=== PATIENT | male | born 1995 | race Caucasian/White ===

== ENCOUNTER 2018-08-15 03:12 | Emergency (ER) | payer SELFPAY ==
[2018-08-15] VITALS (7 sets, daily range): BP systolic 114–141; BP diastolic 66–80; PULSE 7–80; RESP 16–22; TEMP 37.8; O2SAT 97–98; BMI 24.3
--- NOTE | 2018-08-15 03:23 | RAD_ITS ---
STUDY: X-RAY - RIGHT SHOULDER REASON FOR EXAM: Male, 22 years old. Deformity right shoulder, patient wrestling TECHNIQUE: 3 view(s) of the shoulder. COMPARISON: None. FINDINGS: Normal acromioclavicular joint. Normal acromion. Anterior inferior dislocation of the humeral head in relationship to the glenoid with an acute displaced avulsion fracture of the greater tuberosity The soft tissue structures are unremarkable. Normal visualized pulmonary apex. RAD/Shoulder min 2 Views IMPRESSION: Acute inferior anterior dislocation of the shoulder joint with an acute displaced avulsion fracture of the greater tuberosity of the humeral head. Electronically Signed: Yessica Kelley MD at 3:55 EST , Service support ,
[2018-08-15] MEDS: Ondansetron 4 MG/2 ML Vial IV (03:25)
--- NOTE | 2018-08-15 03:25 | ED.RN ---
THIS NURSE CONTACTED PT FATHER PER PT REQUEST
[2018-08-15] MEDS: Morphine 4 MG/ML Syringe IV (03:31)
[2018-08-15] MEDS: Propofol 200 MG/20 ML Vial 100 MG IV BOLUS (04:16)
--- NOTE | 2018-08-15 04:23 | RAD_ITS ---
HISTORY: POST REDUCTION COMPARISON: Right shoulder 0342 hours FINDINGS: XR right shoulder 2 views 0440 hours Recent exam demonstrated anterior dislocation of the right humeral head. 2 views obtained following successful closed reduction of the right glenohumeral joint. The glenohumeral relationship is now normal. Redemonstration of a displaced fracture of the greater tuberosity of the right humeral head. The fracture fragment measures approximately 3.5 cm in length. No new fracture. The glenoid appears intact. Right AC joint is not widened. RAD/Shoulder min 2 Views IMPRESSION: 1. Successful closed reduction of the right glenohumeral joint. 2. Redemonstration of a displaced fracture of the greater tuberosity, right humeral head. No new fracture post reduction. at [id number] Reported and signed by: Casey Bradford MD Electronically Signed: Casey Bradford, at 4:56 EST Tel , Service support ,
--- NOTE | 2018-08-15 05:13 | ED.DCSUM_ITS ---
- ER Visit Summary Date of Service: 08/15/18 Chief Complaint: Shoulder injury History of Present Illness: The patient is a 22 M presenting for evaluation secondary to a shoulder injury. Patient with ports that he was wrestling with somebody and suffered a fall on his outstretched arm. He reports that he had immediate onset of severe shoulder pain and a numbness type feeling going down into his fingers. He denies any other injuries. Physical Examination: Physical exam unremarkable except for examination of the patient's right upper extremity. There is obvious deformity noted at the patient's shoulder with a palpable glenoid fossa and displaced humeral head. Patient has an abrasion over his elbow. Patient has normal pulses, normal range of motion of the fingers wrist and elbow. He reports decreased sensation over the forearm but is able to feel light touch. Test Results: Right shoulder x-ray demonstrates fracture dislocation. Repeat x- ray demonstrates successful reduction, but continued greater tuberosity displaced fracture Emergency Department Course and Treatment: Patient presented secondary to a shoulder injury. I initially tried to manipulate the patient to reduce this on arrival, but the patient was unable to tolerate secondary to pain. IV was established patient was given morphine and Zofran. X-rays showed fracture dislocation. I consented the patient for both interscalene nerve block as well as procedural sedation should be necessary. Patient was prepped and placed in a left lateral decubitus position, the patient's interscalene portion of his brachial plexus was identified under ultrasound. A 19-gauge spinal needle was advanced under direct visualization, but during the procedure I was unable to obtain adequate view of the patient's brachial plexus and the needle tip, so the procedure was aborted. Patient was then sedated with a total of 100 mg of propofol on full cardiovascular monitoring and supplemental oxygen. He did not have any desaturation episodes. Traction countertraction and some scapular manipulation were utilized, and the patient's shoulder was reduced successfully. He was placed in a sling and swath. Due to the fact that he has the greater tuberosity fracture, patient will require orthopedics for follow-up. Patient was discharged with a course of Percocet. Patient had improvement of his numbness in his forearm and hands prior to discharge. Disposition: Discharge Impression: 1. Right shoulder dislocation 2. Displaced greater tuberosity fracture 3. Procedural sedation 4. Closed reduction of the right shoulder by ED physician This note was generated with Dragon dictation software. It may contain incorrect words, spelling, and punctuation that were not noted in review of the chart prio r to signing ED Disposition - Plan for ED Patient: Disposition: Home or Assisted Living Chief Complaint: Upper Extremity Injury Diagnosis: Fracture dislocation of right shoulder joint Instructions: ED Dislocation Shoulder Redu, ED Fx Shoulder Prescriptions: Oxycodone HCl/Acetaminophen [Percocet 5/325] 1 tab PO Q6H PRN PRN 5 Days #20 tab PRN Reason: Pain Referrals: Rizwan Mayers DO [STAFF PHYSICIAN] - As soon as possible
[2018-08-15] MEDS: oxyCODONE 5 MG Tablet PO (05:30)
== END 2018-08-15 05:46 | disposition home or self-care (01) ==
PROVIDERS: Emergency Provider Emergency Medicine
DX: S42.251A Displaced fracture of greater tuberosity of right humerus, initial encounter for closed fracture (principal); S43.004A Unspecified dislocation of right shoulder joint, initial encounter; S50.311A Abrasion of right elbow, initial encounter; W19.XXXA Unspecified fall, initial encounter; Y93.72 Activity, wrestling; Y92.9 Unspecified place or not applicable
CPT/HCPCS: 23665; 73030; 96374; 96375; 99283; J7030; A4216; J2405

== ENCOUNTER 2020-12-27 14:15 | Emergency (ER) | payer SELFPAY ==
[2018-08-15 03:17] VITALS: BMI 24.3
[2020-12-27 14:16] VITALS: BP 134/70; PULSE 67; RESP 18; TEMP 36.1; O2SAT 96; BMI 25.1
[2020-12-27] MEDS: Azithromycin 250 MG Tablet 500 MG PO (14:47)
[2020-12-27] MEDS: Naproxen 250 MG Tablet 500 MG PO (14:48)
[2020-12-27] MEDS: HYDROcodone Bitartrate/Apap 5/325 Tablet PO (14:49)
--- NOTE | 2020-12-27 16:34 | EDS_ITS ---
HPI History of Present Illness Chief Complaint: Ear Problem Narrative Narrative: 25-year-old male reports that he has left ear pain that began yesterday. Is sharp pain is 710 severity. Is worsened by sitting up. Is relieved by leaning to the left. States pain got much worse after he put peroxide in it and then rinsed it out. He also complains of muffled hearing and a headache is 5-10 severity. He denies any other complaints. [facility] Medical History Otitis media Home Medications azithromycin 250 mg PO DAILY #4 tab 12/27/20 [Rx Last Taken Unknown] hydrocodone-acetaminophen 1 tab PO Q6H PRN 3 Days #10 tab 12/27/20 [Rx Last Taken Unknown] naproxen 500 mg PO BID #14 tab 12/27/20 [Rx Last Taken Unknown] Allergy/AdvReac Type Severity Reaction Status Date / Time Penicillins AdvReac Other Verified 12/27/20 14:16 Social History Smoking Status: Never smoker ROS ROS ED Constitutional Constitutional ED: Denies chills, fever(s) or sweats Eyes Eyes: Denies change in vision ENT ENT ED: Reports ear pain; Denies sore throat Cardiovascular Cardiovascular: Denies chest pain Respiratory/Chest Respiratory/Chest: Denies cough, dyspnea or dyspnea on exertion Gastrointestinal Gastrointestinal: Denies abdominal pain, diarrhea, melena, nausea or vomiting Genitourinary Genitourinary ED: Denies dysuria or urinary frequency Musculoskeletal Musculoskeletal: Denies myalgias Integumentary Denies rash Neurologic Neurologic: Denies headache(s), paresthesias or weakness EXAM Physical Exam Const Vital Signs: 12/27/20 14:16 Temperature 96.9 F L Temperature Source Temporal Pulse Rate 67 Respiratory Rate 18 Blood Pressure 134/70 H Blood Pressure Mean 91 Pulse Ox 96 Oxygen Delivery Method Room Air Positive well nourished and well developed General Appearance ED: well developed HEENT Reports normocephalic and head/scalp atraumatic; Denies TM's clear HEENT Narrative: No pain with movement of the pinna. No swelling of the external auditory canal. No exudate. He does have erythema, dullness, and loss of landmarks of the left TM. Right TM is normal. Tympanic Membrane ED: Negative for TM's clear Eyes PERRL Neck no lymphadenopathy, supple and no JVD General: Negative for tenderness Resp normal respiratory effort and clear to auscultation bilaterally Cardio regular rate, regular rhythm and no murmurs GI normal to inspection, nondistended, normoactive bowel sounds and non-tender GI Narrative: No guarding, rebound, or peritoneal signs. Palpation: soft Back/Spine Back/Spine Narrative: Nontender. Extremity General Extremety ED: Negative for edema or tenderness General Extremity: Negative for edema Neuro oriented x3, CN's II-XII intact bilaterally and no sensory deficits noted Sensorium / Orientation: alert Motor Exam: strength 5/5 throughout Psych mental status grossly normal Skin no rashes or lesions noted MDM [facility] Treatment and Re-Evaluation Comments:: Emergency department course: Patient is penicillin allergic. He was given [place], naproxen, and Zithromax p.o. Treatment plan: Patient be discharged in the mild medications. Instructed to follow-up the [facility] in 1 week for another exam. Return to the emergency department for any worsening symptoms. Disposition: To home in improved and stable condition. This note was generated with [employer] dictation software. It may contain incorrect words, spelling, and punctuation that were not noted in review of the chart prior to signing. Discharge Plan Triage Chief Complaint: Ear Problem ED Provider: Shawn Grant Dx/Rx/DC Orders Clinical Impression: Otitis media Instructions: ED Otitis Media Antibiotic ... Prescriptions: New azithromycin [azithromycin] 250 MG tablet 250 mg PO DAILY Qty: 4 RF: 0 hydrocodone-acetaminophen 5-325 mg tablet 1 tab PO Q6H PRN (Reason: pain) 3 Days Qty: 10 RF: 0 naproxen 500 MG tablet 500 mg PO BID Qty: 14 RF: 0 Primary Care Provider: Care Physician,No Primary Referrals: Mojgan Alvarez [NON-STAFF] - 1 Week Care Physician,No Primary [Primary Care Provider] - Disposition Disposition: Home, self care Discharge Date/Time: 12/27/20 14:51
== END 2020-12-27 14:51 | disposition home or self-care (01) ==
PROVIDERS: Emergency Provider Emergency Medicine
DX: H66.92 Otitis media, unspecified, left ear (principal)
CPT/HCPCS: 99283

== ENCOUNTER 2021-01-01 13:37 | Emergency (ER) | payer OTHER, SELFPAY ==
[2021-01-01 13:38] VITALS: BP 137/66; PULSE 70; RESP 18; TEMP 36.7; O2SAT 97; BMI 25.0
--- NOTE | 2021-01-01 14:23 | EX.ED.DYSGE1 ---
HPI History of Present Illness Chief Complaint: Ear Problem Informant: patient Narrative Narrative: Patient is a 25-year-old previously healthy male who presents to the emergency department for left ear pain, discharge and decreased hearing. He was seen in the emergency department 1 week ago and started on azithromycin. He states that he does not feel he got much benefit from this and has completed the course. Whenever he turns his head to the left he does get some water running out of it. He denies significant headache. He has some mild jaw discomfort on that side. He denies any neck pain. No fevers, chills or body aches. No sore throat or difficulty swallowing. He has never had issues with his ears before in the past. No overlying skin changes. He denies drug use. PFSH PFS Medical History Otitis media Home Medications azithromycin 250 mg PO DAILY #4 tab 12/27/20 [Rx Last Taken Unknown] hydrocodone-acetaminophen 1 tab PO Q6H PRN 3 Days #10 tab 12/27/20 [Rx Last Taken Unknown] naproxen 500 mg PO BID #14 tab 12/27/20 [Rx Last Taken Unknown] ciprofloxacin HCl 5 drp LEFT EAR Q12H 7 Days #14 ea 01/01/21 [Rx Last Taken Unknown] Allergy/AdvReac Type Severity Reaction Status Date / Time Penicillins AdvReac Other Verified 01/01/21 13:40 Social History Smoking Status: Never smoker ROS ROS ED Constitutional Constitutional ED: Denies chills or fever(s) Eyes Eyes: Denies change in vision ENT ENT ED: Reports ear discharge and ear pain; Denies epistaxis or rhinorrhea Cardiovascular Cardiovascular: Denies chest pain or palpitations Respiratory/Chest Respiratory/Chest: Denies cough, dyspnea or dyspnea on exertion Gastrointestinal Gastrointestinal: Denies abdominal pain, diarrhea, nausea or vomiting Musculoskeletal Musculoskeletal: Denies back pain or neck pain Integumentary Denies rash Neurologic Neurologic: Denies dizziness, headache(s) or weakness EXAM Physical Exam Const Vital Signs: 01/01/21 13:38 Temperature 98.1 F Temperature Source Temporal Pulse Rate 70 Respiratory Rate 18 Blood Pressure 137/66 H Blood Pressure Mean 89 Pulse Ox 97 Oxygen Delivery Method Room Air Positive well nourished and well developed General Appearance ED: well developed and NAD HEENT HEJOHNNY Narrative: Left tympanic membrane is difficult to visualize. There is swelling in the external canal. There is discharge present. Unable to tell if there is a tympanic membrane perforation. No mastoid tenderness. No overlying skin changes. No malignant otitis externa. No trismus. No swelling or lymphadenopathy going down the neck. Face and Sinus: normal facial exam Eyes PERRL and EOMs intact bilaterally Neck no lymphadenopathy, supple and no meningeal signs Resp normal respiratory effort, normal air movement and clear to auscultation bilaterally Cardio regular rate, regular rhythm and no murmurs GI normal to inspection, nondistended, normoactive bowel sounds Extremity full ROM Neuro oriented x3 and CN's II-XII intact bilaterally Skin no rashes or lesions noted MDM MDM MDM Narrative Medical decision making narrative: Patient presents to the emergency department for left ear pain. He failed outpatient treatment of otitis media with azithromycin. On my examination appears that he has otitis externa. Will start Cipro drops. He is to follow-up with ear nose and throat physician tomorrow morning. Return precautions are reviewed with him. He understands and is agreeable to plan. Discharged home in stable condition. All questions answered. Discharge Plan Triage Chief Complaint: Ear Problem ED Provider: Radhames Solorzano Dx/Rx/DC Orders Clinical Impression: Otitis externa Instructions: ED External Ear Infection (Adult) Prescriptions: New ciprofloxacin HCl 0.2 % dropperette 5 drp LEFT EAR Q12H 7 Days Qty: 14 RF: 0 No Action azithromycin [azithromycin] 250 MG tablet 250 mg PO DAILY Qty: 4 RF: 0 hydrocodone-acetaminophen 5-325 mg tablet 1 tab PO Q6H PRN (Reason: pain) 3 Days Qty: 10 RF: 0 naproxen 500 MG tablet 500 mg PO BID Qty: 14 RF: 0 Primary Care Provider: Care Physician,No Primary Referrals: Memo Norris MD [STAFF PHYSICIAN] - 1 Day Care Physician,No Primary [Primary Care Provider] - Disposition Disposition: Home, self care Discharge Date/Time: 01/01/21 14:35
== END 2021-01-01 14:35 | disposition home or self-care (01) ==
LOC: ED 14:25
PROVIDERS: Emergency Provider Emergency Medicine
DX: H60.92 Unspecified otitis externa, left ear (principal)
CPT/HCPCS: 99282

== ENCOUNTER 2021-01-08 23:32 | Emergency (ER) | payer OTHER, SELFPAY ==
[2021-01-08 23:33] VITALS: BP 149/79; PULSE 99; RESP 15; TEMP 37.3; O2SAT 100; BMI 24.9
--- NOTE | 2021-01-08 23:49 | EDS_ITS ---
HPI HPI - GI History of Present Illness Chief Complaint: Shortness of Breath Informant: patient Nausea/Vomiting/Emesis GI Symptom: Positive for Nausea and Vomiting Onset: Today Quality: Positive for Nonbilious Episodes: 2 Diarrhea/Melena/Hematochezia GI Symptom: Positive for Diarrhea Onset: Yesterday Stool Quality: Positive for Watery; Negative for Maroon and BRB per rectum Episodes: 5 Associated Symptoms Associated Symptoms: Negative for Dysuria, Frequency, Hematuria and Urgency Narrative Narrative: Patient states he woke up from his nap to work third shift tonight and vomited, he felt sweaty and feverish. 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 He has had no cough or shortness of breath. He had diarrhea for the past 24 hours, watery nonbloody. Denies any abdominal pains. No other symptoms. No known contact with anyone who was ill, he states he mainly stays at home and goes to work, and has been in contact with no one that he knows of with COVID-19 recently, nor has he had it or been vaccinated. [facility] Medical History Otitis media Home Medications ondansetron 8 mg PO Q8H PRN PRN #20 tab 01/09/21 [Rx Last Taken Unknown] Allergy/AdvReac Type Severity Reaction Status Date / Time Penicillins AdvReac Other Verified 01/08/21 23:37 Social History Smoking Status: Never smoker ROS ROS ED Constitutional Constitutional ED: Reports chills, fever(s), malaise and subjective; Denies body ache(s) Eyes Eyes: Denies change in vision or diplopia ENT ENT ED: Denies rhinorrhea or sore throat Cardiovascular Cardiovascular: Denies chest pain or palpitations Respiratory/Chest Respiratory/Chest: Denies cough or dyspnea Gastrointestinal Gastrointestinal: Reports as per HPI, diarrhea, nausea and vomiting; Denies abdominal pain Genitourinary Genitourinary ED: Denies dysuria or hematuria Musculoskeletal Musculoskeletal: Denies back pain or neck pain Integumentary Denies abscess or rash Neurologic Neurologic: Denies headache(s), paresthesias or weakness Psychiatric Psychiatric: Denies anxiety or suicidal thoughts EXAM Physical Exam Const Vital Signs: 01/08/21 23:33 01/08/21 23:41 Temperature 99.1 F Temperature Source Temporal Pulse Rate 99 Respiratory Rate 15 Respiratory Effort Normal Non-Labored Respiratory Pattern Normal Blood Pressure 149/79 H Blood Pressure Mean 102 Pulse Ox 100 Oxygen Delivery Method Room Air Positive well nourished and well developed General Appearance ED: well developed and NAD HEENT Reports moist mucous membranes normocephalic and atraumatic Eyes PERRL and EOMs intact bilaterally Neck full ROM and supple Resp normal respiratory effort and clear to auscultation bilaterally Cardio regular rate, regular rhythm and no murmurs GI non-tender and non-distended Auscultation: normoactive bowel sounds Palpation: soft Back/Spine no CVA tenderness General Back: other FROM Extremity normal to inspection General Extremety ED: Negative for tenderness Neuro oriented x3, CN's II-XII intact bilaterally and no sensory deficits noted Sensorium / Orientation: awake and alert Motor Exam: strength 5/5 throughout Skin no rashes or lesions noted and no wounds MDM MDM MDM Narrative Medical decision making narrative: Patient was given Zofran and felt better. His vital signs are normal except for a low-grade temp of 99.1. I did a Covid test that he was amenable to, it came back negative, the rapid antigen. He is discharged home with a prescription for Zofran to use as needed, instructions for supportive care for which is likely gastroenteritis viral in etiology, and we discussed reasons to return. Discharge Plan Triage Chief Complaint: Shortness of Breath ED Provider: Sinan Landeros Dx/Rx/DC Orders Clinical Impression: Gastroenteritis Instructions: ED Gastritis (Adult) Prescriptions: New ondansetron 4 mg tablet,disintegrating 8 mg PO Q8H PRN PRN (Reason: Nausea) Qty: 20 RF: 0 Stand Alone Forms: Work Status Form Primary Care Provider: Care Physician,No Primary Referrals: Mojgan Alvarez [NON-STAFF] - 3-5 Days if not improving Care Physician,No Primary [Primary Care Provider] - Disposition Disposition: Home, self care
[2021-01-08] MEDS: Ondansetron ODT 4 MG Tablet 8 MG PO (23:52)
[2021-01-09 00:33] VITALS: BP 124/74; PULSE 74; RESP 16; TEMP 36.9; O2SAT 98
== END 2021-01-09 00:40 | disposition home or self-care (01) ==
PROVIDERS: Emergency Provider Emergency Medicine
DX: K52.9 Noninfective gastroenteritis and colitis, unspecified (principal)
CPT/HCPCS: 87426; 99283

== ENCOUNTER 2021-12-02 16:18 | Emergency (ER) | payer OTHER, SELFPAY ==
[2021-12-02 16:20] VITALS: BP 135/103; PULSE 81; RESP 17; TEMP 36.3; O2SAT 95; BMI 25.9
--- NOTE | 2021-12-02 16:48 | RAD_ITS ---
EXAM: XR THORACIC SPINE, 2 VIEWS CLINICAL INDICATION: pain/injury TECHNIQUE: Frontal and lateral views of the thoracic spine. This report was created using [employer] report generation technology. COMPARISON: None. FINDINGS: VERTEBRAE: Unremarkable. Preserved vertebral body height. No fracture. No spondylolisthesis. Preservation of the normal thoracic kyphosis. No significant facet arthropathy. DISC SPACES: Unremarkable. Disc spaces are maintained. RAD/Thoracic Spine 2 Views IMPRESSION: No evidence of thoracic spinal fracture or spondylolisthesis. Electronically Signed: To Quevedo MD at 18:07 EDT ,
--- NOTE | 2021-12-02 16:48 | RAD_ITS ---
EXAM: XR LUMBOSACRAL SPINE, 2 OR 3 VIEWS CLINICAL INDICATION: pain/injury TECHNIQUE: Frontal and lateral views of the lumbar spine and sacrum. This report was created using [employer] report generation technology. COMPARISON: None. FINDINGS: VERTEBRAE: Unremarkable. Preserved vertebral body height. No fracture. No spondylolisthesis. Preservation of the normal lumbar lordosis. No significant facet arthropathy. DISC SPACES: No acute findings. Disc spaces are maintained. GASTROINTESTINAL TRACT: Unremarkable as visualized. Included bowel gas pattern is non-obstructive. RAD/Lumbar Spine 2 or 3 Views IMPRESSION: No evidence of lumbar spinal fracture or spondylolisthesis. Electronically Signed: To Quevedo MD at 18:07 EDT ,
--- NOTE | 2021-12-02 16:50 | EDS_ITS ---
HPI History of Present Illness Chief Complaint: Back Informant: patient Onset/Context/Timing Onset: Hours (1) Context: Sudden Onset Injury: lifting (Lifting weights, at the time was doing bent over rows while standing) Timing: Continuous Quality: Aching Location: Thoracic (Lower) and Lumbar Current Severity: Moderate Maximum Severity: Moderate Worsened by: improves with Movement Relieved by: Remaining Still Associated Symptoms Associated Symptoms: Numbness and Tingling; Negative for Abdominal Pain, Urinary Retention, Urinary Incontinence, Constipation and Fecal Incontinence Narrative Narrative: Patient is a healthy 26-year-old who lifts weights regularly. He was standing and hunched over doing rows for his upper back muscles when he felt like he threw his back out suddenly, he had sudden onset of pain in his low back and tingling that wrapped around both sides of his back but did not go into his buttock or either lower extremity. That lasted for 10 or 15 minutes or so, now the numbness is gone but the pain persists. He denies any bowel or bladder dysfunction, weakness in his legs or than giving out, or saddle anesthesia. Prior similar symptoms: No PFSH PFSH Medical History Otitis media Home Medications cyclobenzaprine 10 mg PO TID PRN #20 tablet 12/02/21 [Rx Last Taken Unknown] naproxen 500 mg PO BID #14 tab 12/02/21 [Rx Last Taken Unknown] Allergy/AdvReac Type Severity Reaction Status Date / Time Penicillins AdvReac Other Verified 12/02/21 16:19 Family History no significant family his Surgical History no surgical history Social History Smoking Status: Never smoker ROS ROS ED Constitutional Constitutional ED: Denies chills or fever(s) Gastrointestinal Gastrointestinal: Denies abdominal pain, constipation, fecal incontinence, nausea or vomiting Genitourinary Genitourinary ED: Reports other Details: no urinary retention ; Denies abdominal discomfort or urinary incontinence Musculoskeletal Musculoskeletal: Reports as per HPI and back pain; Denies neck pain Integumentary Denies rash or wounds Neurologic Neurologic: Reports paresthesias; Denies headache(s) or weakness EXAM Physical Exam Const Vital Signs: 12/02/21 16:20 Temperature 97.3 F L Temperature Source Temporal Pulse Rate 81 Respiratory Rate 17 Blood Pressure 135/103 H Blood Pressure Mean 113 Pulse Ox 95 Oxygen Delivery Method Room Air Positive well nourished and well developed General Appearance ED: well developed and NAD HEENT Negative for trauma or tenderness Eyes PERRL and EOMs intact bilaterally Neck full ROM and supple GI normal to inspection, nondistended, normoactive bowel sounds, soft to palpation and non-tender Back/Spine normal to inspection Thoracic Spine / Upper Back: pain with ROM; Negative for ROM limited, thoracic spinal tenderness or paraspinal muscle tenderness Lumbar Spine / Lower Back: pain with ROM, lumbar spinal tenderness L2 and L3, p araspinal muscle tenderness bilateral L2 and L3 and straight leg raise negative bilaterally; Negative for ROM limited Extremity normal to inspection, full ROM and no pedal edema Neuro oriented x3 and no sensory deficits noted Sensorium / Orientation: alert Motor Exam: strength 5/5 throughout and clonus absent Deep Tendon Reflexes: Rt Patellar (L4): 2+, Lt Patellar (L4): 2+, Rt Ankle (S1): 2+ and Lt Ankle (S1): 2+ Deep Tendon Reflexes Back: Rt Patellar (L4): 2+, Lt Patellar (L4): 2+, Rt Ankle (S1): 2+ and Lt Ankle (S1): 2+ Plantar Reflex: Downgoing: bilateral Psych mental status grossly normal and thought process normal Skin no rashes or lesions noted and no wounds MDM MDM MDM Narrative Medical decision making narrative: Three-view x-ray series of the lumbosacral spine and 2 view x-ray series of the thoracic spine on my interpretation are negative for any acute. Radiology in agreement. The patient was treated with IM Toradol and Norflex he felt much better on reevaluation the less uncomfortable. Suspect this was a strain and a neuropraxia. He does not require an emergent MRI, if he develops neurologic symptoms or persist this may be indicated, no bowel or bladder dysfunction or signs or symptoms of cauda e quina syndrome at this time, given the distribution of the tingling and the discomfort that was in the lower thoracic/upper lumbar area is why we obtained x-rays of both the thoracic spine and the lumbosacral. Discharged with prescriptions and a work note. No PCP, referred to the next doctor on the unassigned list Dr. Daniels. Radiography Diagnostic Testing: Clinical Impression(s) from Imaging Studies Lumbar Spine X-Ray 12/02/21 16:48 IMPRESSION: No evidence of lumbar spinal fracture or spondylolisthesis. Electronically Signed: To Quevedo MD at 18:07 EDT , Thoracic Spine X-Ray 12/02/21 16:48 IMPRESSION: No evidence of thoracic spinal fracture or spondylolisthesis. Electronically Signed: To Quevedo MD at 18:07 EDT , Discharge Plan Triage Chief Complaint: Back ED Provider: Sinan Landeros Dx/Rx/DC Orders Clinical Impression: Neurapraxia, Acute lumbosacral myofascial strain, Acute thoracic myofascial strain Instructions: ED Back Spasm, No Trauma, ED Back Sprain/Strain, ED Paraesthesias Prescriptions: New cyclobenzaprine [cyclobenzaprine] 10 MG tablet 10 mg PO TID PRN (Reason: Muscle Spasm) Qty: 20 RF: 0 naproxen 500 MG tablet 500 mg PO BID Qty: 14 RF: 0 Stand Alone Forms: ED Work / School Excuse Primary Care Provider: Care Physician,No Primary Referrals: Blanca Daniels DO [STAFF PHYSICIAN] - 1 Week if not improving Care Physician,No Primary [Primary Care Provider] - Disposition Disposition: Home, Self Care
[2021-12-02] MEDS: Orphenadrine 60 MG/2 ML Ampul IM (16:59)
[2021-12-02] MEDS: Ketorolac 60 MG/2 ML Vial IM (16:59)
== END 2021-12-02 18:23 | disposition home or self-care (01) ==
PROVIDERS: Emergency Provider Emergency Medicine; Visit Provider Emergency Medicine
DX: S39.012A Strain of muscle, fascia and tendon of lower back, initial encounter (principal); S23.9XXA Sprain of unspecified parts of thorax, initial encounter; X50.0XXA Overexertion from strenuous movement or load, initial encounter
CPT/HCPCS: 72070; 72100; 96372; 99282